=== PATIENT | female | born 1955 | race Caucasian/White ===

== ENCOUNTER 2017-06-06 11:37 | Emergency (ER) | payer MEDICARE | END 2017-06-06 12:12 | disposition home or self-care (01) | LOC: SCSER 11:37 | DX: G89.29 Other chronic pain (principal); M54.5 Low back pain; M54.2 Cervicalgia; K21.9 Gastro-esophageal reflux disease without esophagitis; K58.9 Irritable bowel syndrome, unspecified; E78.5 Hyperlipidemia, unspecified; I10 Essential (primary) hypertension; J44.9 Chronic obstructive pulmonary disease, unspecified; F41.9 Anxiety disorder, unspecified; F31.9 Bipolar disorder, unspecified; F17.210 Nicotine dependence, cigarettes, uncomplicated; Z79.891 Long term (current) use of opiate analgesic; Z86.73 Personal history of transient ischemic attack (TIA), and cerebral infarction without residual deficits; Z79.899 Other long term (current) drug therapy | CPT/HCPCS: 99283 ==

== ENCOUNTER 2017-07-06 23:19 | Observation (INO) | payer MEDICARE ==
[2017-07-07 00:54] LABS: Troponin I Less than 0.010 ng/mL (< 0.028)
[2017-07-07] MEDS ORDERED: Ondansetron HCl/PF 4 MG/2 ML Vial IVP PRN (01:02)
[2017-07-07] MEDS ORDERED: Ondansetron ODT 4 MG TAB SL PRN (01:02)
[2017-07-07 01:42] VITALS: BMI 21.4
[2017-07-07] MEDS: traMADol HCl 50 MG TAB PO PRN ×2 (02:14→09:23)
[2017-07-07] MEDS ORDERED: PROVENTIL INHALER 6.7 G (200 INHALATIONS) INH PRN (03:13)
[2017-07-07 03:21] LABS: Troponin I Less than 0.010 ng/mL (< 0.028)
[2017-07-07 04:31] LABS: Amphetamine Not Detected (NotDetected); Barbiturates Screen Not Detected (NotDetected); Benzodiazepine Screen Not Detected (NotDetected); Cocaine Metabolite Screen Not Detected (NotDetected); Medtox Control Line Valid? VALID (VALID); Medtox Reader # READER 4; Methadone Not Detected (NotDetected); Methamphetamine Not Detected (NotDetected); Opiate Screen Detected (NotDetected); Oxycodone Screen Not Detected (NotDetected); Phencyclidine (PCP) Not Detected (NotDetected); THC/Cannabinoid Screen Detected (NotDetected); Tricyclic Screen Not Detected (NotDetected)
[2017-07-07] MEDS: Ibuprofen 800 MG TAB PO SCH ×2 (05:12→14:36)
--- NOTE | 2017-07-07 05:41 | HP ---
PRIMARY CARE PHYSICIAN: Cynthia Delgadillo M.D. CHIEF COMPLAINT: Neck pain. HISTORY OF PRESENT ILLNESS: This is a 62-year-old female with a known history of hypertension and ch ronic neck pain, who presents initially to the ER with complaints of progressive neck pain. It appea rs that the patient also while in the emergency department, on review of systems also complained of n ausea and chest pain with exertion and therefore, asked for admission on that account. At the time of my evaluation; however, patient endorses neck pain as her primary chief complaint and primary focus. It appears that the neck pain is chronic. It has been ongoing for several years. Emily sutton previously had a primary care provider in [place], who was prescribing her morphine for this chroni c neck pain and she had been taking it for approximately 18 years. The patient moved to [place], [place] initially because she thought she was going to get here, but eventually that did not happen. However, when she moved to the area and tried to take her primary care provider from [place]'s pres cription for morphine, the local pharmacy would not fill this pain medication. The patient states emily sutton has not taken morphine for approximately 4 weeks. Her history is slightly inconsistent as the tawnya ent also gives a history of being tapered down and off of morphine while with her primary care provid er in [place]. Patient states that she was seen in the emergency department given some prednisone an d Tylenol #3, which is verified in our records. She states that this helped somewhat, but "it is jus t like aspirin that works and it wears off." Patient denies having ever seen any pipe bowl paint trimmer or any other specialists in regards to her neck. Regards to the patient's chest discomfort, she states to me that this only occurs when she is having worsening neck pain. REVIEW OF SYSTEMS: As per HPI. Constitutional: No fevers, no chills, no recent weight gain or loss es. HEENT: No new headaches, lightheadedness, or dizziness. Cardiovascular: No chest pain as desc ribed above, when she has the chest pain, she describes it as a pressure and accompanied by nausea. Respiratory: No new shortness of breath. No new cough or congestion. Gastrointestinal: As noted a yanira. No abdominal pain, no diarrhea. Genitourinary: No dysuria, no changes in urine quality, maria d tity. Musculoskeletal: Neck pain as noted above. PAST MEDICAL HISTORY: As per above, 1. Hypertension. 2. Hyperlipidemia. 3. Depression. 4. Chronic neck pain. 5. TIA in 2015. 6. GERD. 7. IBS. 8. Status post cholecystectomy. HOME MEDICATIONS: Please see the EMR for full details. Her list currently includes, lisinopril 10 m g p.o. daily, ibuprofen 800 mg p.o. q.8 h, Advair Diskus 1 puff daily, atorvastatin 80 mg p.o. at bed time, albuterol 1 puff p.r.n., venlafaxine 150 mg p.o. daily. ALLERGIES: CODEINE causes itching, PENICILLIN, unknown reaction. SULFA MEDICATIONS, unknown reactio n. MEDICATIONS: The patient denies any new over the counter medications. No new vitamins. No new herb al supplements. No changes to her medication regimen as listed in the last 3 months. FAMILY HISTORY: The patient denies any known family history of cardiovascular disease or chronic madai n. SOCIAL HISTORY: The patient is an active tobacco user. Denies any illicit drug use. Denies any alc ohol use. PHYSICAL EXAMINATION: VITAL SIGNS: Temperature of 98.0, pulse of 79, blood pressure 122/77, satting 93% on room air, respi rations 16. GENERAL: The patient is a very tearful and anxious throughout this interview. HEENT: Normocephalic, atraumatic. Moist mucous membranes. Equal ocular motions are intact. CARDIOVASCULAR: S1, S2. No murmurs, rubs, or gallops. Pulses 2+ bilateral upper extremities. RESPIRATORY: No wheezes, rales, or rhonchi. Reasonable air movement. No conversational dyspnea. ABDOMEN: Positive bowel sounds, soft, nontender to palpation. MUSCULOSKELETAL: Moving all 4 extremities equally. LABORATORY DATA AND IMAGING: WBC 7.1, hemoglobin 13.5, hematocrit 42.1, platelets 209. Sodium 141, potassium 3.9, chloride 106, bicarbonate 25, BUN 18, creatinine 0.8, glucose 84, calcium 9.6, total b ilirubin 0.3, AST 19, ALT 18, alkaline phosphatase 81. Troponin less than 1.01 x2. Total protein 7. 6, albumin 4.6. UA is notable for trace leukoesterase, 7-10 wbc's, 7-10 squamous epithelial cells, a nd 3+ bacteria. UDS is notable for positive cannabinoids and positive opioids. On 07/06/2017, CT of the cervical spine. Impression: "Stable views of the cervical spine with stabl e degenerative changes. No fracture or subluxation is seen involving the cervical spine." On 07/06/2017, brain CT. Impression: "No acute intracranial abnormalities demonstrated. Remote lac unar infarction right basal ganglia." Chest x-ray. Impression: "No acute cardiopulmonary process." CT angiography on 06/15/2017. Impression: "Occlusion of the left vertebral artery. The right verte bral artery is patent, less than 50% maximal stenosis in the internal carotid based on the NASCET cri teria. Scattered atherosclerotic plaque within the aortic arch and the internal carotid arteries." ASSESSMENT AND PLAN: A 62-year-old female presented with a chief complaint of neck pain. 1. Neck pain. Patient has a component of chronic neck pain. Discussed with the patient need for ou tpatient followup and goals of outpatient care for her chronic pain. 2. Chest pain. Concern for atypical chest pain given the complaints of exertional nausea and chest discomfort. Serial troponin, EKG in the morning, echocardiogram. 3. Unclear if the patient is appropriate for consideration of vertebral artery with revascularizatio n at this point in time. Patient's symptoms also whether or not her presenting symptoms actually are related to the vertebral artery occlusion. She is denying any episodes of diplopia, perioral numbne ss, tinnitus, dysphagia, dysarthria, or ataxia. That being said, we will go ahead and consult Neurol ulicesy for recommendations on further management. 4. Diet: Cardiac. 5. Activity: As tolerated. Recommend PT and OT regards to her cervical complaints. 6. Deep venous thrombosis prophylaxis. Thank you for asking me to care for the patient. Questions or concerns, please contact me if at [facility].
[2017-07-07] MEDS ORDERED: Mometasone/Formoterol 120 PUFF INHALER INH SCH (07:00)
[2017-07-07 07:20] VITALS: BP 123/77; TEMP 97.7
[2017-07-07] MEDS ORDERED: Non-Formulary Item 1 EACH (Fluticasone/Salmeterol [Advair Diskus 250/50] 1 PUFF) INH SCH (09:00)
[2017-07-07] MEDS ORDERED: Lisinopril 10 MG TAB PO SCH (09:00)
[2017-07-07] MEDS ORDERED: Aspirin 325 MG TAB PO SCH (09:00)
[2017-07-07] MEDS ORDERED: Venlafaxine HCl XR 150 MG CAP PO SCH (09:00)
[2017-07-07] MEDS ORDERED: Lidocaine 5% Patch TD SCH (09:00)
[2017-07-07] MEDS ORDERED: Carvedilol 3.125 MG TAB PO SCH (09:00)
[2017-07-07] MEDS ORDERED: tiZANidine HCl 4 MG TAB PO PRN (10:18)
[2017-07-07] MEDS ORDERED: Ketorolac Tromethamine 30 MG/ML VIAL IVP PRN (10:19)
[2017-07-07] MEDS ORDERED: Regadenoson 0.4 MG/5 ML SYRINGE ONE (13:24)
--- NOTE | 2017-07-07 14:58 | CON ---
NEUROLOGY CONSULTATION NOTE DATE OF CONSULTATION: 07/07/2017 CONSULTING PHYSICIAN: Hospitalist Service. IMPRESSION: 1. Asymptomatic vertebral artery occlusion on the left with 50% stenosis on the right. 2. Hypertension. 3. Hyperlipidemia. PLAN: 1. Continue aspirin and statin. 2. Outpatient followup with pain management. HISTORY OF PRESENT ILLNESS: Ms. Chambers is a 62-year-old white female from [place]. She has been previ ously treated for chronic lower back and neck pain. She has been off morphine now for 6 months. She came into the emergency room last night with complaints of neck pain. She had a CT angiogram, which showed complete occlusion of left vertebral artery and a 50% stenosis on the right. She denies any recent history of neurologic symptoms suggestive of TIA. She otherwise did not have any other partic ular complaints other than she was seeking care for her neck pain. PAST MEDICAL HISTORY: As listed above. ALLERGIES: SULFA, PENICILLIN and CODEINE. MEDICATIONS: Lisinopril, ibuprofen, Effexor and atorvastatin. FAMILY HISTORY: Noncontributory. SOCIAL HISTORY: Positive for tobacco use. Denies any illicit drug use. REVIEW OF SYSTEMS: No complaints of any focal neurologic symptoms, dysarthria, dysphasia or double v ision, headache or vertigo. PHYSICAL EXAMINATION: GENERAL: She is a thin elderly lady sitting in bed in no distress. VITAL SIGNS: Blood pressure 122/77, pulse 79, respirations 16 and temperature 98.0. HEENT: Unremarkable. NEUROLOGIC: She is alert and appropriate. Her speech is fluent and clear. Exam is nonfocal. No tr emor or dysmetria is present. She can walk independently. LABORATORY STUDIES: Reviewed and only notable for white cells in the urine with 3+ bacteria. IMAGING DATA: CT of the cervical spine shows degenerative changes with no acute abnormalities. CT o f the brain shows remote area of lacunar infarction in the right basal ganglia. EKG shows normal sin us rhythm. Chest x-ray was clear. SUMMARY: This is a 62-year-old woman with hypertension and hyperlipidemia who has an asymptomatic ve rtebral artery occlusion. We can continue aspirin and a statin since no further neurologic workup is needed at this point.
--- NOTE | 2017-07-07 15:01 | NM ---
RADIONUCLIDE STRESS AND REST MYOCARDIAL PERFUSION SCAN WITH CT ATTENUATION CORRECTION AND SPECT IMAGI NG WITH LEFT VENTRICULAR WALL MOTION EVALUATION AND EJECTION FRACTION: HISTORY: Chest pain. FINDINGS: Lexiscan protocol used. There is homogeneous uptake of radiotracer throughout the left ventricular my ocardium on the stress and rest images. No focal perfusion defect or reversibility. QGS analysis of g ated SPECT images shows no focal wall motion abnormalities. Left ventricular ejection fraction is glenn culated at 63%. IMPRESSION: 1. Normal myocardial perfusion scan. 2. Normal LVEF. POS: SHAAN
--- NOTE | 2017-07-07 17:57 | DIS ---
DATE OF ADMISSION: 07/07/2017 DATE OF DISCHARGE: 07/07/2017 DISCHARGE DIAGNOSES: 1. Noncardiac chest pain. 2. Chronic neck pain. 3. Neck and muscle spasm. 4. Vertebral artery occlusion. 5. Hypertension. 6. Depression. CONSULTATIONS: None. PROCEDURES: 1. A 2D echocardiogram showed an EF 55-60%, mild diastolic dysfunction, otherwise normal. 2. Nuclear stress test that showed no reversible ischemia, normal stress test, normal EF. HISTORY AND PHYSICAL: Ms. Chambers is a 62-year-old female who presented to the emergency department for evaluation of worsening neck pain, and shortness of breath. Workup in the emergency department was unremarkable. We were called for admission. HOSPITAL COURSE: The patient was seen and examined by Dr. Harmon and admitted to observation. Serial cardiac biomarkers were obtained and they were unremarkable. I took over in the morning. A nuclear stress test was ordered that was negative. A 2D echocardiogram showed the above findings. The patient continued to have neck spasm. She was put on Zanaflex, which seemed to help and given so me anti-inflammatories. Initial imaging in the emergency department did show a left vertebral artery occlusion. Neurology wa s consulted and saw the patient and Dr. Linder felt there was nothing further to do, to continue ant ihyperlipidemics and aspirin. The patient was discharged home with outpatient followup. Physical examination: This patient was seen and examined on the day of discharge. DISCHARGE PLAN and disposition was discussed with the patient face to face at the bedside. Greater t galvez 30 minutes was spent at the bedside today. DISCHARGE MEDICATIONS: 1. Albuterol HFA 1 puff q.4 hours p.r.n. 2. Aspirin 81 mg daily. 3. Atorvastatin 80 mg p.o. at bedtime. 4. Carvedilol 3.25 mg p.o. b.i.d. 5. Fluticasone salmeterol, Advair 250/50 one puff daily. 6. Ibuprofen 800 mg p.o. q.8 hours as needed. 7. Lidoderm patch 5% 1 patch transdermal daily. 8. Lisinopril 10 mg daily. 9. Zanaflex 4 mg p.o. t.i.d. p.r.n. muscle spasm. 10. Venlafaxine ER 150 mg p.o. daily. DISCHARGE CONDITION: Stable. DISPOSITION: Will be discharged home via private vehicle. DISCHARGE ACTIVITY: Per cardiopulmonary limits. DISCHARGE DIET: Heart healthy recommended. FOLLOWUP APPOINTMENTS: With primary care physician within a week. She has seen Dr. Delgadillo in the past, but wants to find a new primary care physician.
[2017-07-07] MEDS ORDERED: Lidocaine Patch Removal TOP SCH (21:00)
[2017-07-07] MEDS ORDERED: Atorvastatin Calcium 40 MG TAB PO SCH (21:00)
--- NOTE | 2017-07-09 13:35 | STRESS ---
Acquisition Time: 2017-07-07 12:44:39 Total Exercise Time: 00:01:00 Test Indications: CHEST PAIN Medications: Protocol: LEXISCAN Max HR: 104 BPM 66% of Pred: 157 BPM Max BP: 136/080 mmHG Max Work Load: 1.0 METS RESTING ECG: NORMAL SINUS RHYTHM AT 81 BPM WITH EARLY REPOLARIZATION; EARLY R-WAVE TRANSITION SYMPTOMS: CHEST PAIN, HEADACHE NORMAL BP RESPONSE ECTOPY: NONE ECG STRESS: NO SIGNIFICANT CHANGES INTERPRETATION: AWAIT NUCLEAR IMAGES FOR DEFINITIVE DIAGNOSIS Confirmed by VIRY VELASQUEZ ([id number]) on 07/09/2017 1:35:06 PM Referred By: Anthony FLETCHER Confirmed By:VIRY VELASQUEZ
== END 2017-07-07 16:59 | disposition home or self-care (01) ==
LOC: ERS 23:19 → 2SW 07-07 01:00
PROVIDERS: ADMIT Internal Medicine; ATTEND Internal Medicine
DX: G89.29 Other chronic pain (principal); M54.2 Cervicalgia; R07.89 Other chest pain; I10 Essential (primary) hypertension; F32.9 Major depressive disorder, single episode, unspecified; M62.838 Other muscle spasm; I65.03 Occlusion and stenosis of bilateral vertebral arteries; K21.9 Gastro-esophageal reflux disease without esophagitis; K58.9 Irritable bowel syndrome, unspecified; E78.5 Hyperlipidemia, unspecified; Z86.73 Personal history of transient ischemic attack (TIA), and cerebral infarction without residual deficits; Z79.51 Long term (current) use of inhaled steroids; Z79.899 Other long term (current) drug therapy; Z88.0 Allergy status to penicillin; Z88.5 Allergy status to narcotic agent; Z88.2 Allergy status to sulfonamides
CPT/HCPCS: 78452; 80061; 80306; 84484 ×2; 93005; 93017; 93306; 94640; 94664; 94760; 96374; 97139; 99285; A9500; G0378; 36415; A4216; J2405; J2785